=== PATIENT | female | born 2000 | race African-American/Black ===

== ENCOUNTER 2023-10-21 15:05 | Inpatient (IN) | payer BC, OTHER ==
[2023-10-21 15:42] VITALS: BMI 37.2
[2023-10-21] MEDS ORDERED: Promethazine HCl 25 MG/ML VIAL IM PRN ×2 (15:54→20:20)
[2023-10-21] MEDS ORDERED: Acetaminophen 500 MG TAB PO PRN (15:54)
[2023-10-21] MEDS ORDERED: hydrALAZINE 20 MG/ML VIAL SLOW IVP PRN (15:54)
[2023-10-21] MEDS ORDERED: Methylergonovine 0.2 MG/ML VIAL IM PRN (15:54)
[2023-10-21] MEDS ORDERED: Misoprostol 200 MCG TAB PR PRN (15:54)
[2023-10-21] MEDS ORDERED: fentaNYL 50 mcg/mL 1 mL Vial SLOW IVP PRN (15:54)
[2023-10-21] MEDS ORDERED: HYDROcodone/Acetaminophen 5/325 mg Tablet PO PRN ×2 (15:54)
[2023-10-21] MEDS ORDERED: Carboprost 250 MCG/ML AMP IM PRN (15:54)
[2023-10-21] MEDS ORDERED: Lidocaine 1% (PF) 30 ML VIAL SC PRN (15:54)
[2023-10-21] MEDS ORDERED: Oxytocin 30 units/NS 500 ML 500 ML IV SCH (16:00)
[2023-10-21] MEDS: Lactated Ringer's 1,000 ML IV SCH (16:23)
[2023-10-21] MEDS: Oxytocin 30 units/NS 500 ML 500 ML IV SCH (16:44)
[2023-10-21] MEDS: Penicillin G Potassium 5 MILL.UNITS in Sodium Chloride 0.9% 100 ML IVPB SCH (16:44)
[2023-10-21 16:50] LABS: Hematocrit 32.2 % (34.9-44.5); Hemoglobin 9.8 g/dL (12.0-15.5); Mean Corpuscular HGB CONC 30.4 g/dL (32.0-36.0); Mean Corpuscular Hemoglobin 23.2 pg (27.0-33.0); Mean Corpuscular Volume 76.1 fL (81.6-98.3); RBC Distribution Width 16.3 % (11.5-14.5); Red Blood Cell (RBC) Count 4.23 10x6/uL (3.90-5.03); White Blood Cell (WBC) Count 6.9 10x3/uL (3.5-10.5)
[2023-10-21 16:52] LABS: ALT (SGPT) 9 U/L (8-55); AST (SGOT) 16 U/L (5-34); Albumin 2.8 g/dL (3.5-5.0); Alkaline Phosphatase 216 U/L (40-110); Anion Gap 13 mmol/L (10-20); BUN (Urea Nitrogen) 4 mg/dL (7.0-18.7); Bilirubin, Total 0.5 mg/dL (0.2-1.2); Calc. Creatinine Clearance 219 mL/min (70-130); Calcium 8.9 mg/dL (7.8-10.44); Carbon Dioxide 19 mmol/L (22-29); Chloride 111 mmol/L (98-107); Estimated GFR 128; Globulin 3.2 g/dL (2.4-3.5); Glucose 89 mg/dL (70-105); Potassium 3.9 mmol/L (3.5-5.1); Sodium 139 mmol/L (136-145)
[2023-10-21 16:56] LABS: Platelet Count 142 10x3/uL (150-450)
[2023-10-21 17:04] LABS: Syphilis Antibody Nonreactive (Nonreactive); Syphilis Antibody Index 0.05 S/CO (<1.00 Non-Reactive)
[2023-10-21 17:25] LABS: HBsAg Index 0.21 S/CO (0-0.99); Hep B Surf Ag - L&D Non-Reactive S/CO (NonReactive)
[2023-10-21] MEDS: fentaNYL/Ropivacaine Epidural 100 ML ONE (20:16)
[2023-10-21] MEDS: Penicillin G 2.5 MILL.units 2.5 MILL.UNITS in Premix 1 BAG IVPB SCH (20:19)
[2023-10-21] MEDS ORDERED: Ondansetron PF 4 MG/2 ML Vial IVP PRN (20:20)
[2023-10-21] MEDS ORDERED: diphenhydrAMINE 50 MG/ML VIAL IVP PRN (20:20)
[2023-10-21] MEDS ORDERED: ePHEDrine Sulfate 50 MG/10 ML VIAL SLOW IVP PRN (20:20)
[2023-10-21] MEDS ORDERED: Acetaminophen 325 MG TAB PO PRN (20:20)
[2023-10-21] MEDS ORDERED: Lactated Ringer's 500 ML IV PRN (20:20)
[2023-10-21] MEDS ORDERED: Moisturizing Cream (Eucerin) 113 GM JAR TOP PRN (20:20)
[2023-10-21] MEDS ORDERED: Naloxone HCl 0.4 mg/ml Vial IVP PRN ×2 (20:20)
[2023-10-21] MEDS ORDERED: Communication Order-Pharmacy FS SCH (20:30)
[2023-10-21] MEDS ORDERED: fentaNYL 2 mcg/Ropivacaine 0.2% Epidural 100 ML CADD EPIDURAL SCH (20:30)
[2023-10-21] MEDS: Ondansetron PF 4 MG/2 ML Vial IVP PRN (23:50)
[2023-10-21] MEDS: Calcium Carbonate 500 MG ChewTAB PO PRN (23:55)
[2023-10-22] MEDS: Ibuprofen 800 MG TAB PO PRN (02:38)
[2023-10-22] MEDS ORDERED: Promethazine HCl 25 MG/ML VIAL IM PRN (03:10)
[2023-10-22] MEDS ORDERED: Milk Of Magnesia 30 ML UDCUP PO PRN (03:10)
[2023-10-22] MEDS ORDERED: diphenhydrAMINE 25 MG CAP PO PRN (03:10)
[2023-10-22] MEDS ORDERED: Ondansetron PF 4 MG/2 ML Vial IVP PRN (03:10)
[2023-10-22] MEDS ORDERED: Oxytocin 30 units/NS 500 ML 500 ML IV SCH (03:10)
[2023-10-22] MEDS ORDERED: hydrALAZINE 20 MG/ML VIAL SLOW IVP PRN (03:10)
[2023-10-22] MEDS ORDERED: HYDROcodone/Acetaminophen 5/325 mg Tablet PO PRN (03:10)
[2023-10-22] MEDS ORDERED: Bisacodyl 10 MG SUPP PR PRN (03:10)
[2023-10-22] MEDS ORDERED: Lanolin Ointment 7 GM TUBE TOP PRN (03:10)
[2023-10-22] MEDS: Lactated Ringer's 1,000 ML IV SCH (08:10)
[2023-10-22] MEDS: Boostrix 0.5 ML (Tdap) VIAL (>/=7 yrs of age) IM ONE (08:10)
[2023-10-22] MEDS: NIFEdipine XL 30 MG ER.TAB PO SCH (08:32)
[2023-10-22] MEDS: Prenatal Vitamin 1 TAB PO SCH (08:32)
[2023-10-22] MEDS: Docusate 100 MG CAP PO SCH (08:32)
[2023-10-22] MEDS: Ferrous Sulfate 325 MG TAB PO SCH (08:32)
[2023-10-22] MEDS ORDERED: Ibuprofen 800 MG TAB PO SCH (10:30)
[2023-10-22] MEDS: Ibuprofen 800 MG TAB PO SCH (13:59)
[2023-10-23 15:47] VITALS: BP 138/86; TEMP 98.4
== END 2023-10-23 15:00 | disposition home or self-care (01) | DRG 807 ==
LOC: CSHLD/OP 15:05 → CSHLD 16:04 → CSHPP 10-22 03:00
PROVIDERS: ADMIT Family Medicine; ATTEND Family Medicine
PROC: 10907ZC Drainage of Amniotic Fluid, Therapeutic from Products of Conception, Via Natural or Artificial Opening (ICD-10-PCS; 2023-10-21)
PROC: 3E033VJ Introduction of Other Hormone into Peripheral Vein, Percutaneous Approach (ICD-10-PCS; 2023-10-21)
PROC: 10E0XZZ Delivery of Products of Conception, External Approach (ICD-10-PCS; principal; 2023-10-22)
DX: O13.4 Gestational [pregnancy-induced] hypertension without significant proteinuria, complicating childbirth (principal); Z37.0 Single live birth; O99.824 Streptococcus B carrier state complicating childbirth; Z3A.39 39 weeks gestation of pregnancy
CPT/HCPCS: 36415; 51702; 80053; 82570; 84156; 85027; 86780; 86850; 86900; 86901; 87340; 99285; J2405; J2540; J2590; J7120